=== PATIENT | male | born 1930 | race Caucasian/White ===

== ENCOUNTER 2017-09-29 11:11 | Day surgery (SDC) | payer OTHER ==
[~2017-09-29] VITALS: Ht 185.4 cm; Wt 108.7 kg
[2017-09-29] MEDS ORDERED: METF500 PO (11:37)
[2017-09-29] MEDS ORDERED: K-Dur 20 meq T20 MEQ PO (11:38)
[2017-09-29] MEDS ORDERED: GLIM4 PO (11:38)
[2017-09-29] MEDS ORDERED: METO50 PO (11:39)
[2017-09-29] MEDS ORDERED: MULTI VITAMIN1 EACH PO (11:39)
[2017-09-29] MEDS ORDERED: FURO40 PO (11:39)
[2017-09-29] MEDS ORDERED: WARF6 PO (11:40)
[2017-09-29] MEDS ORDERED: FISH OIL 1,0001 EAC1 PO (11:40)
[2017-09-29] MEDS ORDERED: E-200200 UNIT PO (11:41)
[2017-09-29] MEDS ORDERED: COLCHICINE0.6 MG PO (11:41)
[2017-09-29] MEDS ORDERED: AMOC200S75 PO (11:42)
[2017-09-29] MEDS ORDERED: Silvadene20 GM (11:43)
== END 2017-09-29 13:40 | disposition home or self-care (01) ==
LOC: ORSCSDS 11:11
PROVIDERS: Student in an Organized Health Care Education/Training Program
PROC: 0Y6S0Z1 Detachment at Left 2nd Toe, High, Open Approach (ICD-10-PCS; principal; 2017-09-29 12:15)
DX: M20.42 Other hammer toe(s) (acquired), left foot (principal); L03.032 Cellulitis of left toe; L08.9 Local infection of the skin and subcutaneous tissue, unspecified; E11.621 Type 2 diabetes mellitus with foot ulcer; I10 Essential (primary) hypertension; Z79.899 Other long term (current) drug therapy
CPT/HCPCS: 82947; 88305; 88311; J0690; J3010; J7120